=== PATIENT | female | born 1975 | race Caucasian/White ===

== ENCOUNTER 2020-06-27 10:00 | Emergency (ER) | payer OTHER ==
[~2020-06-27] VITALS: Ht 172.7 cm; Wt 65.8 kg
[2020-06-27 10:04] VITALS: BP 156/80
--- NOTE | 2020-06-27 10:18 | NUR ---
PT WAS REFFERED HERE FROM HER PCP FOR LOW HGB: 7.4, PT STATES SHES BEEN HAVING A HEAVY MENSTRUAL CYCLE, 10 DAYS/ONE CYCLE, 4-5 PADS CHANGED DAILY WITH BLOOD CLOTS APPRO 2X2CM. PT WAS HOSPITALIZED FOR PE AND LOW HGB IN 04/2020 AND HAD BLOOD TRANSFUSION; ALSO REPORTS HAD SURGERY FOR FIBROIDS 5 YEARS AGO. LMP: 06/11/2020. DENIES WEAKNESS, DIZZINESS, PAIN. NO SOB. PATIENT STATES PAIN OF 0/10 AT THIS TIME; VSS; PATIENT POSITIONED FOR COMFORT; HOB ELEVATED; BEDRAILS UP X1; BED DOWN. ER MD MADE AWARE OF PT STATUS.
--- NOTE | 2020-06-27 10:26 | NUR ---
XRAY IS AT BEDSIDE.
[2020-06-27 10:35] LABS: BASOPHILS # (AUTO) 0.1 K/uL (0.00-0.22); BASOPHILS % (AUTO) 0.8 % (0.0-2.0); EOSINOPHILS # (AUTO) 0.1 K/uL (0-0.4); EOSINOPHILS % (AUTO) 1.9 % (0.0-4.0); HEMATOCRIT 27.1 % (36-48); HEMOGLOBIN 8.1 g/dL (12.0-16.0); LYMPHOCYTES % (AUTO) 13.2 % (20.5-51.1); MEAN CORPUSCULAR HEMOGLOBIN 22 pg (27-31); MEAN CORPUSCULAR HGB CONC 30 g/dL (33-37); MEAN CORPUSCULAR VOLUME 72.3 fL (80-94); MONOCYTES # (AUTO) 0.6 K/uL (0.8-1.0); MONOCYTES % (AUTO) 7.3 % (1.7-9.3); NEUTROPHILS # (AUTO) 5.8 K/uL (1.8-7.7); NEUTROPHILS % (AUTO) 76.8 % (42.2-75.2); PLATELET COUNT (AUTO) 181 K/uL (140-450); RED BLOOD CELL COUNT(AUTO) 3.74 MIL/uL (4.20-5.40); RED CELL DISTRIBUTION WIDTH 21.5 % (11.6-13.7); WHITE BLOOD COUNT (AUTO) 7.6 K/uL (4.8-10.8)
[2020-06-27 10:51] LABS: ANION GAP 16.8 (8-16); CARBON DIOXIDE 22.5 mmol/L (21-32); CREATININE 0.9 mg/dL (0.6-1.3); POTASSIUM 4.3 mmol/L (3.5-5.1)
[2020-06-27 11:39] VITALS: BP 136/74
--- NOTE | 2020-06-27 11:40 | NUR ---
Patient discharged with v/s stable. Written and verbal after care instructions given and explained. Patient verbalized understanding. Ambulatory with steady gait. All questions addressed prior to discharge. Advised to follow up with PMD.
== END 2020-06-27 11:40 | disposition home or self-care (01) ==
LOC: MED 10:00
DX: D64.9 Anemia, unspecified (principal); I10 Essential (primary) hypertension; I82.409 Acute embolism and thrombosis of unspecified deep veins of unspecified lower extremity; Z98.890 Other specified postprocedural states
CPT/HCPCS: 36415; 71045; 80048; 81002; 81025; 85025; 86886; 86900; 86901; 99284; Q0092